=== PATIENT | male | born 1970 | race Hispanic/Latino ===

== ENCOUNTER 2019-01-17 03:03 | Observation (INO) | payer BC ==
[2019-01-17] MEDS ORDERED: Morphine 4 MG/ML VIAL ONE (03:28)
[2019-01-17 03:59] LABS: #Basophils 0.1 thou/uL (0.0-0.2); #Eosinphils 0.2 thou/uL (0.0-0.7); #Lymphocytes 2.7 thou/uL (1.20-3.40); #Monocytes 0.9 thou/uL (0.11-0.59); #Neutrophils 5.7 thou/uL (1.40-6.50); %Basophils 0.7 % (0.0-1.0); %Eosinophils 1.8 % (0.0-10.0); %Lymphocytes 28.7 % (21.0-51.0); %Monocytes 9.2 % (0.0-10.0); %Neutrophils 59.7 % (42.0-75.0); Hemoglobin 12.9 g/dL (14.0-18.0); Mean Corpuscular HGB CONC 35.4 g/dL (32.0-36.0); Mean Corpuscular Hemoglobin 35.1 pg (27.0-31.0); Mean Corpuscular Volume 99.1 fL (78.0-98.0); Mean Platelet Volume 7.1 fL (7.4-10.4); Platelet Count 298 thou/uL (130-400); RBC Distribution Width 11.6 % (11.5-14.5); Red Blood Cell (RBC) Count 3.68 mill/uL (4.70-6.10); White Blood Cell (WBC) Count 9.6 thou/uL (4.8-10.8)
[2019-01-17 04:05] LABS: INR-International Normal Ratio 0.9; PTT 27.8 SEC (22.9-36.1); Prothrombin Time 12.1 SEC (12.0-14.7)
[2019-01-17] MEDS ORDERED: Ondansetron PF 4 MG/2 ML Vial ONE (04:07)
[2019-01-17 04:11] LABS: ALT (SGPT) 41 U/L (8-55); AST (SGOT) 71 U/L (5-34); Albumin 3.7 g/dL (3.5-5.0); Alkaline Phosphatase 89 U/L (40-150); Anion Gap 14 mmol/L (10-20); BUN (Urea Nitrogen) 10 mg/dL (8.9-20.6); Bilirubin, Total 0.5 mg/dL (0.2-1.2); Calc. Creatinine Clearance 0 mL/min (70-130); Calcium 9.3 mg/dL (7.8-10.44); Carbon Dioxide 24 mmol/L (22-29); Chloride 97 mmol/L (98-107); Estimated GFR-MDRD 62; Globulin 3.6 g/dL (2.4-3.5); Lipase 62 U/L (8-78); Potassium 3.9 mmol/L (3.5-5.1); Protein, Total 7.3 g/dL (6.0-8.3); Sodium 131 mmol/L (136-145)
[2019-01-17 04:15] LABS: Glucose 570 mg/dL (70-105)
[2019-01-17] MEDS ORDERED: Insulin Regular 300 UNITS/3 ML VIAL ONE (04:35)
[2019-01-17] MEDS ORDERED: Adacel (T-DAP) 0.5 ML SYRINGE ONE (04:46)
[2019-01-17] MEDS ORDERED: Dextrose 5% in Water 1,000 ML IV PRN (05:17)
[2019-01-17] MEDS ORDERED: Ondansetron ODT 4 MG TAB PO PRN (05:17)
[2019-01-17] MEDS ORDERED: traMADol HCl 50 MG TAB PO PRN (05:17)
[2019-01-17] MEDS ORDERED: Dextrose 50% Abboject 50 ML SYRINGE SLOW IVP PRN (05:17)
[2019-01-17] MEDS ORDERED: Ondansetron PF 4 MG/2 ML Vial IVP PRN (05:17)
[2019-01-17 05:27] VITALS: BMI 31.5
[2019-01-17] MEDS: traMADol HCl 50 MG TAB PO PRN ×2 (05:36→11:25)
[2019-01-17] MEDS: Acetaminophen 500 MG TAB PO SCH ×3 (05:36→17:51)
[2019-01-17] MEDS: Cyclobenzaprine 10 MG TAB PO PRN ×2 (05:36→18:03)
[2019-01-17] MEDS: Ibuprofen 600 MG TAB PO SCH ×3 (05:37→21:31)
[2019-01-17] MEDS: Sodium Chloride 0.9% 1,000 ML IV SCH ×3 (05:37→21:34)
[2019-01-17 06:42] LABS: Bacteria/HPF None Seen HPF (None Seen); Bilirubin Negative (Negative); Blood, Urine 2+ (Negative); Clarity Clear (Clear); Glucose, Urine (Dipstick) Greater than 1000 mg/dL (Negative); Leukocyte Negative Leu/uL (Negative); Mucous/LPF Rare LPF (<2+); Nitrite Negative (Negative); Protein, Urine (Dipstick) Negative (Neg-Trace); RBC/HPF 21-50 HPF (0-3); Squamous Epithelial 0-3 HPF (0-3); Urobilinogen Normal mg/dL (Less than 2)
[2019-01-17 06:44] LABS: Urine Culture Reflex Yes Yes
[2019-01-17] MEDS: Insulin Regular 300 UNITS/3 ML VIAL SC PRN ×4 (06:45→21:31)
[2019-01-17] MEDS ORDERED: Sodium Chloride 0.9% 500 ML IV SCH (07:30)
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
[2019-01-17] MEDS: Famotidine 20 MG TAB PO SCH ×2 (09:40→21:31)
[2019-01-17] MEDS: Amoxicillin/Potassium Clav 875 MG TAB PO SCH ×2 (09:40→21:31)
[2019-01-17] MEDS ORDERED: ISOVUE-370 76%-LOCM 1 ML ONE (10:03)
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
[2019-01-17] MEDS ORDERED: Prevnar 13-Val Conj/PF 0.5 ML SYRINGE IM ONE (21:00)
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
[2019-01-18] MEDS: Acetaminophen 500 MG TAB PO SCH ×3 (05:16→11:38)
[2019-01-18] MEDS: Ibuprofen 600 MG TAB PO SCH ×2 (05:17→14:13)
[2019-01-18] MEDS: Sodium Chloride 0.9% 1,000 ML IV SCH (05:17)
[2019-01-18] MEDS: Insulin Regular 300 UNITS/3 ML VIAL SC PRN ×2 (05:24→12:24)
[2019-01-18 05:32] LABS: #Eosinphils 0.2 thou/uL (0.0-0.7); #Lymphocytes 1.7 thou/uL (1.20-3.40); #Monocytes 0.7 thou/uL (0.11-0.59); #Neutrophils 5.9 thou/uL (1.40-6.50); %Basophils 0.4 % (0.0-1.0); %Eosinophils 2.1 % (0.0-10.0); %Lymphocytes 20.3 % (21.0-51.0); %Monocytes 7.9 % (0.0-10.0); %Neutrophils 69.3 % (42.0-75.0); Hemoglobin 10.4 g/dL (14.0-18.0); Mean Corpuscular HGB CONC 36.1 g/dL (32.0-36.0); Mean Corpuscular Hemoglobin 35.4 pg (27.0-31.0); Mean Platelet Volume 6.3 fL (7.4-10.4); Platelet Count 248 thou/uL (130-400); RBC Distribution Width 11.6 % (11.5-14.5); Red Blood Cell (RBC) Count 2.94 mill/uL (4.70-6.10); White Blood Cell (WBC) Count 8.6 thou/uL (4.8-10.8)
[2019-01-18 05:44] LABS: Anion Gap 11 mmol/L (10-20); BUN (Urea Nitrogen) 15 mg/dL (8.9-20.6); Calc. Creatinine Clearance 127 mL/min (70-130); Calcium 8.5 mg/dL (7.8-10.44); Carbon Dioxide 21 mmol/L (22-29); Chloride 106 mmol/L (98-107); Estimated GFR-MDRD 71; Glucose 207 mg/dL (70-105); Potassium 3.8 mmol/L (3.5-5.1); Sodium 134 mmol/L (136-145)
[2019-01-18] MEDS ORDERED: Ascorbic Acid 500 mg Chewable Tablet PO SCH (09:00)
[2019-01-18] MEDS: Famotidine 20 MG TAB PO SCH (09:06)
[2019-01-18] MEDS: traMADol HCl 50 MG TAB PO PRN (09:06)
[2019-01-18] MEDS: Amoxicillin/Potassium Clav 875 MG TAB PO SCH (09:06)
[2019-01-18 11:34] VITALS: TEMP 98.1
[2019-01-18 14:54] LABS: Hemoglobin 9.9 g/dL (14.0-18.0)
[2019-01-18 15:40] VITALS: BP 146/77
[2019-01-18] MEDS ORDERED: Ferrous Sulfate 325 MG TAB PO SCH (17:00)
== END 2019-01-18 16:53 | disposition home or self-care (01) ==
LOC: ERS 03:03 → SURG A 05:11 → INTOOBSV 05:11
PROVIDERS: ADMIT Surgery; ATTEND Surgery
DX: S37.012A Minor contusion of left kidney, initial encounter (principal); S37.011A Minor contusion of right kidney, initial encounter; S32.019A Unspecified fracture of first lumbar vertebra, initial encounter for closed fracture; S32.029A Unspecified fracture of second lumbar vertebra, initial encounter for closed fracture; S32.039A Unspecified fracture of third lumbar vertebra, initial encounter for closed fracture; S32.049A Unspecified fracture of fourth lumbar vertebra, initial encounter for closed fracture; S32.059A Unspecified fracture of fifth lumbar vertebra, initial encounter for closed fracture; Z79.84 Long term (current) use of oral hypoglycemic drugs; Z79.899 Other long term (current) drug therapy; V69.50XA Passenger in heavy transport vehicle injured in collision with unspecified motor vehicles in traffic accident, initial encounter; Y92.411 Interstate highway as the place of occurrence of the external cause
CPT/HCPCS: 36415; 36416; 70450; 71260; 72125; 74177; 80048; 80053; 81001; 83690; 85025; 85610; 85730; 86850; 86900; 86901; 87086; 90471; 90715; 96361; 96374; 96375; G0378; G0390; J1815; J2270; J2405; Q9966

== ENCOUNTER 2019-01-22 22:57 | Observation (INO) | payer BC ==
--- NOTE | 2019-01-22 23:32 | RAD ---
CHEST ONE VIEW: History: Chest pain, left arm pain and numbness. FINDINGS: Heart size is within normal limits. There is some parenchymal change in the left lower lobe concernin g for partial atelectasis and/or pneumonia. There is some very subtle parenchymal change in the media l right lower lobe. No pneumothorax or pleural effusion. The mid and upper lung zones are clear. Ther e is parenchymal change in the left base and right base, new from prior CT of 01-17-19. IMPRESSION: Parenchymal changes in the left and right lung bases, more prominent in the left lower lobe, evidence for partial atelectasis and/or pneumonia/pneumonitis. POS: [facility]
[2019-01-22 23:50] LABS: #Eosinphils 0.2 thou/uL (0.0-0.7); #Lymphocytes 2.7 thou/uL (1.20-3.40); #Monocytes 0.9 thou/uL (0.11-0.59); #Neutrophils 7.3 thou/uL (1.40-6.50); %Basophils 0.3 % (0.0-1.0); %Eosinophils 1.8 % (0.0-10.0); %Lymphocytes 24.3 % (21.0-51.0); %Monocytes 7.7 % (0.0-10.0); %Neutrophils 65.9 % (42.0-75.0); Hemoglobin 10.7 g/dL (14.0-18.0); Mean Corpuscular HGB CONC 36.2 g/dL (32.0-36.0); Mean Corpuscular Hemoglobin 35.6 pg (27.0-31.0); Mean Corpuscular Volume 98.3 fL (78.0-98.0); Mean Platelet Volume 5.7 fL (7.4-10.4); Platelet Count 405 thou/uL (130-400); RBC Distribution Width 12.4 % (11.5-14.5); Red Blood Cell (RBC) Count 3.02 mill/uL (4.70-6.10); White Blood Cell (WBC) Count 11.1 thou/uL (4.8-10.8)
[2019-01-23 00:10] LABS: ALT (SGPT) 14 U/L (8-55); AST (SGOT) 19 U/L (5-34); Albumin 3.6 g/dL (3.5-5.0); Alkaline Phosphatase 75 U/L (40-150); Anion Gap 14 mmol/L (10-20); BUN (Urea Nitrogen) 11 mg/dL (8.9-20.6); Bilirubin, Total 0.9 mg/dL (0.2-1.2); Calc. Creatinine Clearance 0 mL/min (70-130); Calcium 9.3 mg/dL (7.8-10.44); Carbon Dioxide 25 mmol/L (22-29); Chloride 102 mmol/L (98-107); Estimated GFR-MDRD Greater than 90; Globulin 3.5 g/dL (2.4-3.5); Glucose 195 mg/dL (70-105); Lipase 47 U/L (8-78); Potassium 3.9 mmol/L (3.5-5.1); Protein, Total 7.1 g/dL (6.0-8.3); Sodium 137 mmol/L (136-145)
[2019-01-23] MEDS ORDERED: Aspirin Chewable 81 MG TAB ONE (04:07)
[2019-01-23] MEDS ORDERED: Acetaminophen 325 MG TAB PO PRN (06:04)
[2019-01-23] MEDS ORDERED: Ondansetron PF 4 MG/2 ML Vial IVP PRN (06:04)
[2019-01-23] MEDS ORDERED: Ondansetron ODT 4 MG TAB SL PRN (06:04)
[2019-01-23 06:35] VITALS: BMI 32.3
[2019-01-23 07:33] LABS: Troponin I Less than 0.010 ng/mL (< 0.028)
--- NOTE | 2019-01-23 07:40 | ULT ---
PRELIMINARY REPORT/[facility]/EMERGENCY AFTER HOURS PROCEDURE: EXAM: US Duplex Left Lower Extremity Veins, Limited EXAM DATE/TIME: 01/23/2019 1:21 AM CLINICAL HISTORY: 49 years old, male; Other: Lle pain, swelling TECHNIQUE: Imaging protocol: Real-time Duplex ultrasound of the Left Lower Extremity with 2-D prasad scale, color Doppler flow and spectral waveform analysis with image documentation. Limited exam focused on the left lower extremity veins. COMPARISON: No relevant prior studies available. FINDINGS: Left deep veins: Unremarkable. The common femoral, femoral, proximal profunda femoral and popliteal veins are patent without thrombus. Normal Doppler waveforms. Normal compressibility and/or augmentation response. Left superficial veins: Unremarkable. Saphenofemoral junction is patent without thrombus. Soft tissues: Unremarkable. IMPRESSION: No acute findings. No evidence of deep vein thrombosis. Thank you for allowing us to participate in the care of your patient. Dictated and Authenticated by: Ben Dominguez MD 01/23/2019 2:08 AM Central Time ([place] & [place]) FINAL REPORT VENOUS DUPLEX SONOGRAM LEFT LOWER EXTREMITY 01/23/2019 performed on emergency basis at 0030 hours: HISTORY: Left leg pain and edema FINDINGS: I agree with the preliminary report by Dr. Dominguez from [facility]. Good color and spectral Dopple r flow. No evidence of DVT. Code QA. Transcribed Date/Time: 01/23/2019 8:02 AM
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
[2019-01-23] MEDS ORDERED: Dextrose 50% Abboject 50 ML SYRINGE SLOW IVP PRN (09:57)
[2019-01-23] MEDS ORDERED: Dextrose 5% in Water 1,000 ML IV PRN (09:57)
[2019-01-23] MEDS ORDERED: HumaLOG 300 UNITS/3 ML VIAL SC PRN (09:57)
[2019-01-23] MEDS ORDERED: Amoxicillin/Potassium Clav 875 MG TAB PO SCH ×2 (10:15→21:00)
[2019-01-23] MEDS ORDERED: ISOVUE-370 76%-LOCM 1 ML ONE (14:32)
[2019-01-23] MEDS ORDERED: oxyCODONE 5 MG TAB PO PRN (15:12)
--- NOTE | 2019-01-23 15:18 | NM ---
Exam: Nuclear medicine cardiac stress with EF and wall motion HISTORY: Chest pain. COMPARISON: None TECHNIQUE: Patient was administered 9.5 mCi of technetium 99m sestamibi for rest imaging and 27.90 mm of technetium minus is made for stress imaging. Cardiac gating was performed FINDINGS: Homogeneous distribution of the radiotracer in the left ventricle on the nonattenuation cor rected images and the attenuation corrected images. No reversibility or fixed defect TID: 1.07 End-diastolic volume: 108 mL End systolic volume: 40 mL Cardiac gating: Normal wall motion and thickening. Ejection fraction: 63% IMPRESSION: 1. No reversibility. No fixed defect. 2. 63% ejection fraction
[2019-01-23 15:47] VITALS: BP 166/82; TEMP 97.6
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
--- NOTE | 2019-01-24 03:55 | DIS ---
DATE OF ADMISSION: 01/23/2019 DATE OF DISCHARGE: 01/23/2019 HOSPITAL COURSE: Please refer to my H and P for further details, which I just did a few hours ago. The patient is a 49-year-old male, who initially presented to the hospital with chest pain and left arm tingling. At this time, he did have a CTA, which did not show any acute PE. Vascular ultrasound of his lower extremities was negative for DVT. Chest x-ray did show some possible atelectasis versus pneumonia on the left lower lung. The patient has mild leukocytosis; however, no cough. He is currently on Augmentin. I did do a stress test on him given history of diabetes and obesity. His stress test indicated an EF of 63%. No reversible or fixed defect was noted. I will discharge the patient home. He will follow up with his primary care doctor as needed. HOME MEDICATIONS: 1. Jardiance 1 p.o. daily. 2. Metformin 500 mg b.i.d. 3. Tramadol 50 mg q.6 hours p.r.n. 4. Augmentin 1 p.o. t.i.d. 5. Trulicity one syringe every 7 days. No changes have been made. He recently had a CT cervical spine, which indicated no acute fractures. The patient was advised that if he starts having weakness and dropping objects from his right hand, that he needs to come into the ER for further evaluation. He has appointments made by his primary care and I have advised him to continue to do so. I saw this patient personally earlier and I will be discharging him. Job ID: [id number]
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
== END 2019-01-23 16:58 | disposition home or self-care (01) ==
LOC: ERS 22:57 → 2SW 01-23 04:12
PROVIDERS: ADMIT Hospitalist; ATTEND Hospitalist
DX: R07.89 Other chest pain (principal); R20.2 Paresthesia of skin; E11.9 Type 2 diabetes mellitus without complications; J90 Pleural effusion, not elsewhere classified; J18.1 Lobar pneumonia, unspecified organism; D72.829 Elevated white blood cell count, unspecified; E66.9 Obesity, unspecified; Z68.32 Body mass index [BMI] 32.0-32.9, adult; Z79.82 Long term (current) use of aspirin; Z79.84 Long term (current) use of oral hypoglycemic drugs
CPT/HCPCS: 36415; 36416; 71045; 71275; 78452; 80053; 83690; 84484; 85025; 85379; 93005; 93017; A9500; G0378; J0153; Q9966

== ENCOUNTER 2019-03-09 08:18 | Outpatient (CLI) | payer OTHER ==
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
[2019-03-09] MEDS ORDERED: ISOVUE-370 76%-LOCM 1 ML ONE (11:49)
== END 2019-03-09 08:19 | disposition home or self-care (01) ==
LOC: BICCT 08:18
PROVIDERS: ATTEND Family Medicine
DX: S37.031D Laceration of right kidney, unspecified degree, subsequent encounter (principal); S37.032D Laceration of left kidney, unspecified degree, subsequent encounter; S37.012D Minor contusion of left kidney, subsequent encounter; S37.011D Minor contusion of right kidney, subsequent encounter
CPT/HCPCS: 74170

== ENCOUNTER 2019-03-10 20:51 | Emergency (ER) | payer BC ==
[2019-03-10] MEDS ORDERED: Ondansetron PF 4 MG/2 ML Vial ONE (21:10)
[2019-03-10] MEDS ORDERED: Famotidine 20 MG TAB ONE (21:17)
[2019-03-10] MEDS ORDERED: diphenhydrAMINE 50 MG/ML VIAL ONE (21:17)
[2019-03-10] MEDS ORDERED: methylPREDNISolone Sod Succ/PF 125 MG/2 ML VIAL ONE (21:17)
[2019-03-10] MEDS ORDERED: Famotidine/PF 20 mg/2ml Vial ONE (21:17)
[2019-03-10 21:29] LABS: #Basophils 0.1 thou/uL (0.0-0.2); #Eosinphils 0.1 thou/uL (0.0-0.7); #Lymphocytes 2.8 thou/uL (1.20-3.40); #Neutrophils 14.3 thou/uL (1.40-6.50); %Basophils 0.4 % (0.0-1.0); %Eosinophils 0.6 % (0.0-10.0); %Lymphocytes 15.3 % (21.0-51.0); %Monocytes 5.6 % (0.0-10.0); Hemoglobin 15.6 g/dL (14.0-18.0); Mean Corpuscular Hemoglobin 33.6 pg (27.0-31.0); Mean Platelet Volume 6.9 fL (7.4-10.4); Platelet Count 334 thou/uL (130-400); RBC Distribution Width 12.9 % (11.5-14.5); Red Blood Cell (RBC) Count 4.64 mill/uL (4.70-6.10); White Blood Cell (WBC) Count 18.3 thou/uL (4.8-10.8)
--- NOTE | 2019-03-10 21:45 | CT ---
Head CT without contrast 03/10/2019: COMPARISON: 01/17/2019 HISTORY: Vomiting, syncope TECHNIQUE: Axial CT imaging at 5 mm intervals from vertex through skull base without contrast FINDINGS: The visualized paranasal sinuses and mastoid air cells demonstrate nonspecific opacificatio n of the right mastoid air cells, a stable finding. There is no displaced calvarial fracture, intracranial hemorrhage, midline shift, or mass effect. IMPRESSION: Stable head CT as detailed above.
[2019-03-10 21:50] LABS: ALT (SGPT) 15 U/L (8-55); AST (SGOT) 14 U/L (5-34); Albumin 4.1 g/dL (3.5-5.0); Alkaline Phosphatase 72 U/L (40-150); Anion Gap 16 mmol/L (10-20); BUN (Urea Nitrogen) 19 mg/dL (8.9-20.6); Bilirubin, Total 0.6 mg/dL (0.2-1.2); Calc. Creatinine Clearance 0 mL/min (70-130); Calcium 9.6 mg/dL (7.8-10.44); Carbon Dioxide 20 mmol/L (22-29); Chloride 105 mmol/L (98-107); Estimated GFR-MDRD 73; Glucose 241 mg/dL (70-105); Potassium 3.8 mmol/L (3.5-5.1); Protein, Total 7.1 g/dL (6.0-8.3); Sodium 137 mmol/L (136-145)
--- NOTE | 2019-03-10 21:50 | CT ---
Cervical spine CT without contrast: 03/10/2019 COMPARISON: 01/17/2019 HISTORY: Fall, pain TECHNIQUE: Axial CT imaging at 2.5 mm intervals through the cervical spine with coronal and sagittal reformatted imaging FINDINGS: The C1 ring is intact. The occipital condyles, dens, C1-2 articulation, atlantoaxial inters pace, craniocervical junction, and cervicothoracic junction demonstrate no acute findings. No prevertebral soft tissue swelling. No anterolisthesis or retrolisthesis. Anterior osteophyte formatio n at C5-6. Imaged lung apices unremarkable. No displaced fracture or dislocation. IMPRESSION: No acute findings.
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
[2019-03-10] MEDS ORDERED: Ketorolac Tromethamine 30 MG/ML VIAL ONE (22:40)
[2019-03-10] MEDS ORDERED: hydrOXYzine 25 MG TAB ONE (23:05)
[2019-03-10 23:27] LABS: Bacteria/HPF None Seen HPF (None Seen); Bilirubin Negative (Negative); Blood, Urine Negative (Negative); Clarity Clear (Clear); Glucose, Urine (Dipstick) Greater than 1000 mg/dL (Negative); Leukocyte Negative Leu/uL (Negative); Mucous/LPF 4+ LPF (<2+); Nitrite Negative (Negative); Protein, Urine (Dipstick) 100 mg/dL (Neg-Trace); RBC/HPF 0-3 HPF (0-3); Squamous Epithelial 0-3 HPF (0-3); Urobilinogen Normal mg/dL (Less than 2)
--- NOTE | 2019-03-11 12:13 | EKG ---
Test Reason : Blood Pressure : / mmHG Vent. Rate : 107 BPM Atrial Rate : 107 BPM P-R Int : 144 ms QRS Dur : 078 ms QT Int : 332 ms P-R-T Axes : 046 030 018 degrees QTc Int : 443 ms Sinus tachycardia Otherwise normal ECG Confirmed by SHERIDAN RODRIGUEZ D.O. ([id number]), associate entertainment editor VARUN PALMA ([id number]) on 03/11/2019 12:13:05 PM Referred By: Confirmed By:SHERIDAN RODRIGUEZ D.O.
== END 2019-03-11 00:35 | disposition home or self-care (01) ==
LOC: ERS 20:51
DX: R55 Syncope and collapse (principal); E11.65 Type 2 diabetes mellitus with hyperglycemia; M54.5 Low back pain; R11.2 Nausea with vomiting, unspecified; M54.2 Cervicalgia
CPT/HCPCS: 36415; 70450; 72125; 72131; 80053; 81003; 81015; 84484; 85025; 93005; 94760; 96361; 96374; 96375; J1200; J1885; J2405; J2930; S0028

== ENCOUNTER 2020-08-18 19:58 | Emergency (ER) | payer BC, SELFPAY ==
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
== END 2020-08-18 20:40 | disposition home or self-care (01) ==
LOC: ERS 19:58
DX: S90.32XA Contusion of left foot, initial encounter (principal); E11.9 Type 2 diabetes mellitus without complications; W14.XXXA Fall from tree, initial encounter

== ENCOUNTER 2025-06-13 20:19 | Emergency (ER) | payer BC, SELFPAY ==
[2025-06-13] MEDS ORDERED: Proparacaine 0.5% Opth 15 ML BOT ONE (21:04)
[2025-06-13] MEDS ORDERED: Fluorescein Opthalmic Strip ONE (21:04)
[2025-06-13] MEDS ORDERED: Erythromycin Base 0.5% Oint 1 GM TUBE ONE (22:13)
[2025-06-13] MEDS ORDERED: Erythromycin Base 0.5% Oint 1 GM TUBE R EYE SCH (22:15)
== END 2025-06-13 22:20 | disposition home or self-care (01) ==
LOC: ERS 20:19
DX: H57.89 Other specified disorders of eye and adnexa (principal); E11.9 Type 2 diabetes mellitus without complications; Z79.4 Long term (current) use of insulin
CPT/HCPCS: 36416; 99283